=== PATIENT | female | born 1975 | race Caucasian/White ===

== ENCOUNTER 2021-08-25 07:53 | Outpatient (REF) | payer OTHER, SELFPAY ==
[2021-08-25 08:54] LABS: Alanine Aminotransferase 20 U/L (0-31); Alkaline Phosphatase 88 U/L (39-117); Anion Gap 8 (12-20); Aspartate Amino Transferase 17 U/L (5-31); Bilirubin Total 0.4 mg/dL (0.0-1.0); Blood Urea Nitrogen 9 mg/dL (9-16); Calcium 9.1 mg/dL (8.4-10.2); Carbon Dioxide 25 mmol/L (22-29); Chloride 109 mmol/L (96-108); Cholesterol 170 mg/dL; Estimated Glomerular Filt Rate > 60; Glucose Fasting 116 mg/dL (60-99); HDL Cholesterol 41 mg/dL; LDL Cholesterol Calculated 100 mg/dl; Potassium 4.3 mmol/L (3.3-5.1); Sodium 138 mmol/L (135-145); Total Protein 7.6 g/dL (6.5-8.0); Triglycerides 147 mg/dL
[2021-08-25 09:48] LABS: Creatinine Urine 94.44 mg/dL; Microalbum/Creatinine Ratio Ur 14.8 ug/mg cr
[2021-08-30 14:51] LABS: Vitamin D 25-OH, D2 <4 ng/mL; Vitamin D 25-OH, D3 9 ng/mL; Vitamin D 25-OH, Total 9 ng/mL (30-100)
== END 2021-08-25 07:54 | disposition home or self-care (01) ==
LOC: HO.LAB 07:53
PROVIDERS: Visit Provider Internal Medicine
DX: E11.9 Type 2 diabetes mellitus without complications (principal); E78.5 Hyperlipidemia, unspecified; E55.9 Vitamin D deficiency, unspecified
CPT/HCPCS: 36415; 80053; 80061; 82043; 82306

== ENCOUNTER 2022-01-18 07:42 | Outpatient (REF) | payer OTHER, SELFPAY ==
[2022-01-18 09:13] LABS: Creatinine Urine 110.27 mg/dL; Microalbum/Creatinine Ratio Ur 7.2 ug/mg cr
[2022-01-18 09:30] LABS: Alanine Aminotransferase 16 U/L (0-31); Albumin Level 3.8 g/dL (3.5-5.0); Alkaline Phosphatase 83 U/L (39-117); Anion Gap 8 (12-20); Aspartate Amino Transferase 15 U/L (5-31); Bilirubin Total 0.3 mg/dL (0.0-1.0); Blood Urea Nitrogen 11 mg/dL (9-16); Calcium 9.5 mg/dL (8.4-10.2); Carbon Dioxide 27 mmol/L (22-29); Chloride 108 mmol/L (96-108); Cholesterol 173 mg/dL; Estimated Glomerular Filt Rate > 60; Glucose Fasting 95 mg/dL (60-99); HDL Cholesterol 33 mg/dL; LDL Cholesterol Calculated 81 mg/dl; Potassium 4.9 mmol/L (3.3-5.1); Sodium 138 mmol/L (135-145); Total Protein 7.5 g/dL (6.5-8.0); Triglycerides 296 mg/dL
[2022-01-22 13:36] LABS: Vitamin D 25-OH, D2 14 ng/mL; Vitamin D 25-OH, D3 9 ng/mL; Vitamin D 25-OH, Total 23 ng/mL (30-100)
== END 2022-01-18 07:43 | disposition home or self-care (01) ==
LOC: HO.LAB 07:42
PROVIDERS: PCP Internal Medicine; Visit Provider Internal Medicine
DX: E11.9 Type 2 diabetes mellitus without complications (principal); E55.9 Vitamin D deficiency, unspecified; E78.5 Hyperlipidemia, unspecified
CPT/HCPCS: 36415; 80053; 80061; 82043; 82306

== ENCOUNTER 2022-05-27 07:39 | Outpatient (REF) | payer OTHER, SELFPAY ==
[2022-06-01 15:32] LABS: TS Negative Control Passed; TS Panel A 0; TS Panel B 0; TS Positive Control Passed; TSpotTB Negative (Negative)
== END 2022-05-27 07:40 | disposition home or self-care (01) ==
LOC: HO.LAB 07:39
PROVIDERS: PCP Internal Medicine; Visit Provider Internal Medicine
DX: Z11.1 Encounter for screening for respiratory tuberculosis (principal)
CPT/HCPCS: 36415; 86481

== ENCOUNTER 2022-09-05 11:23 | Emergency (ER) | payer OTHER, SELFPAY ==
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
[2022-09-05 11:38] VITALS: BP 130/45; PULSE 82; RESP 18; TEMP 36.7; O2SAT 100; BMI 28.5
== END 2022-09-05 13:15 | disposition home or self-care (01) ==
PROVIDERS: Emergency Provider Emergency Medicine; PCP Internal Medicine
DX: Z04.1 Encounter for examination and observation following transport accident (principal); M25.512 Pain in left shoulder
CPT/HCPCS: 73030; 99282; 99283

== ENCOUNTER 2023-01-02 07:45 | Outpatient (REF) | payer OTHER, SELFPAY ==
--- NOTE | ~2023-01-02 | XR_ITS ---
EXAMINATION: XR CLAVICLE, LEFT CLINICAL INFORMATION: Shoulder COMPARISON: 09/13/2022 TECHNIQUE: 2 of the left clavicle. FINDINGS: The clavicle is intact. The bones and soft tissues are normal. No fracture. Acromioclavicular joint alignment is anatomic. XR/XR clavicle LT IMPRESSION: Normal left clavicle.
== END 2023-01-02 07:46 | disposition home or self-care (01) ==
LOC: HO.XRAY 07:45
PROVIDERS: PCP Internal Medicine; Visit Provider Internal Medicine
DX: M89.8X1 Other specified disorders of bone, shoulder (principal)
CPT/HCPCS: 73000

== ENCOUNTER 2023-02-01 22:58 | Emergency (ER) | payer OTHER, SELFPAY ==
--- NOTE | ~2023-02-01 | XR_ITS ---
EXAMINATION: XR CHEST CLINICAL INFORMATION: Cough and shortness of breath COMPARISON: None available. TECHNIQUE: 2 views of the chest were obtained. FINDINGS: No significant abnormality is noted involving the heart, lungs, mediastinum, bony thorax or soft tissues. XR/XR chest 2V IMPRESSION: Unremarkable examination.
[2023-02-01 23:04] VITALS: BP 146/38; PULSE 82; RESP 20; TEMP 36.4; O2SAT 99; BMI 29.3
[2023-02-01 23:43] LABS: COVID-19 Test Negative (Negative); IDNOW Serial# 6674DD1D
[2023-02-01 23:48] LABS: IDNOW Serial# 55D5AD1C; Influenza A Negative (Negative); Influenza B2 Negative (Negative)
--- NOTE | 2023-02-02 00:52 | ED.GENADULT ---
HPI - General Adult General Chief complaint: Upper Respiratory Symptoms Stated complaint: stuffy nose, coughing Time Seen by Provider: 02/02/23 00:24 Source: patient, family (Daughter) and environment coordinator Mode of arrival: ambulatory Limitations: no limitations History of Present Illness HPI narrative: 47-year-old female came in for evaluation of cough, nasal congestion for 1 week patient is known to have environmental allergy history ran out of her [facility], patient been complaining of severe nasal congestion that make her breathe through her nose. No fever, no chills. Related Data Previous Rx's Medication Instructions Recorded blood sugar diagnostic ([employer] #50 ea 07/03/20 Test strips) rosuvastatin 5 mg tablet 5 mg PO DAILY 90 days #90 tabs 03/17/22 ergocalciferol (vitamin D2) 1,250 1,250 mcg PO QWEEK 90 days #13 caps 09/01/22 mcg (50,000 unit) capsule gabapentin 100 mg capsule 100 mg PO BEDTIME 90 days #90 caps 09/01/22 lidocaine 5 % topical patch 1 patch topical DAILY #15 ea 09/12/22 (Lidoderm) albuterol sulfate 90 mcg/actuation 1 inh inhalation QID PRN shortness 02/02/23 aerosol inhaler of breath or wheezing #8.5 grams cetirizine 5 mg-pseudoephedrine ER 1 tab PO Q12H PRN allergy symptoms 02/02/23 120 mg tablet,extended #20 tabs release,12hr (Zyrtec-D) phenylephrine HCl 1 % nasal drops 2 drp intranasal Q6-8H PRN nasal 02/02/23 (Ephrine) congestion 3 days #30 mL prednisone 20 mg tablet 20 mg PO BID #10 tabs 02/02/23 Allergies Allergy/AdvReac Type Severity Reaction Status Date / Time No Known Allergies Allergy Verified 02/01/23 23:04 [No Known Allergies*] Review of Systems Review of Systems: All other systems are reviewed and are negative Constitutional: Reports as per HPI and Reports no additional constitutional complaints Eyes: Reports as per HPI and Reports no additional eye complaints Reports system reviewed and no additional complaints, except as documented Cardiovascular: Reports as per HPI and Reports no additional cardiovascular complaints Respiratory: Reports as per HPI and Reports no additional respiratory complaints Gastrointestinal: Reports as per HPI and Reports no additional gastrointestinal complaints Genitourinary: Reports no additional female genitourinary complaints Musculoskeletal: Reports no additional musculoskeletal complaints Skin/Breast: Reports system reviewed and no additional complaints, except as docu Psychiatric: Reports no additional psychiatric complaints Endocrine: Reports no additional endocrine complaints Hematologic/Lymphatic: Reports no additional hematologic/lymphatic complaints Allergic/Immunologic: Reports no additional allergic/immunologic complaints Reports system reviewed and no additional complaints, except as documented and Reports Abnormal speech present [facility] Past Medical History Medical History Diabetes mellitus Hyperlipidemia LDL goal <100 Left shoulder strain Neuropathy Overweight (BMI 25.0-29.9) Surgical History History of section History of laparoscopic cholecystectomy Family History Family History Father Lung cancer Mother Stroke Hypertension Diabetes mellitus Social History Social History Housing: Apartment Alcohol intake: current Alcohol intake frequency: a few times a month Alcohol type: beer Patient Tobacco Use Status: Former Tobacco user Tobacco use type: Cigarette e-Cigarette/Vaping Use: Never Used Second Hand Smoke Exposure: No Advance Directives: No Advance Directives Information Provided: Yes service: No Current occupational status: employed Current occupational exposures/hazards: No Cognitive needs: No Hearing needs: No Vision needs: No Physical Exam ED Vital Signs: Vital Signs - 24 hr 02/01/23 23:04 Temperature 97.6 F Pulse Rate 82 Respiratory Rate 20 Blood Pressure 146/38 H Pulse Oximetry 99 Oxygen Delivery Method Room Air BMI result Body Mass Index 29.3 Vital signs have been reviewed as appeared to be correct. Blood pressure normal. Heart rate normal. Respiration rate normal. Temperature normal. Oxygen saturation normal. Appearance: Alert. Oriented X3. No acute distress. Head: Normal external exam. Normocephalic. Atraumatic. No Torres signs noted. No raccoon eyes noted Eyes: PERRLA. EOMI. Conjunctiva and sclera normal. Eyelids normal. ENT: TM's Normal. Pharynx normal. Uvula midline. Moist mucous membranes. No trismus noted. No drooling noted. No muffled voice noted. No sinus tenderness on percussion. Neck: Normal inspection. Neck supple. FROM. No adenopathy. Thyroid Normal. No meningeal signs. No neck mass noted. CVS: Normal heart rate and rhythm. Heart sound normal. No murmurs noted. Pulses normal throughout. Respiratory: No respiratory distress. Painless inspiration. Breath sounds normal. No wheezes/rales/rhonchi noted. Chest nontender. No accessory muscle usage noted or decreased air movement noted. Abdomen: Soft and nontender. Bowel sounds normal in all 4 quadrants. No distention noted. No organomegaly noted. No visible injury noted. Back: No CVA tenderness. Full range of motion noted. Skin: Skin warm and dry. Normal skin color. Normal skin turgor. No rashes/lesions/lacerations noted. Extremities: No lower extremity edema. Extremities exhibit normal range of motion. Extremities nontender. Neuro: Oriented X 3. Cranial nerve exam: II-XII are grossly intact No motor deficit. No sensory deficit. Reflexes normal. Course Course Course Narrative: Environmental allergy with nasal congestion will start the patient on Zyrtec/prednisone for 5 days/ Efrin and follow-up with PCP. Medical Decision Making Differential Diagnosis Differential Diagnoses: The differential diagnosis associated with the presentation includes (Sinusitis, environmental allergy, viral infection, pneumonia.) Lab Data MDM Lab Attestation statement: I reviewed the patient's lab results. Labs: Lab Results 02/01/23 02/01/23 Range/Units 23:22 23:22 COVID-19 (KHUSHBU) Negative (Negative) COVID-19 Clin Com See Note Influenza Type A (YOMI) Negative (Negative) Influenza Type B (YOMI) Negative (Negative) Influenza A & B Note See Note Independent Interpretation I performed an independent interpretation of an: Plain X-Ray (Chest: No acute intrathoracic pathology.) Radiology Impression Discussion of test interpretation with radiology: I have reviewed the radiologist's reading. Discharge Plan Discharge Clinical Impression: Allergy, Congested nose Patient Disposition: Home, Self-Care Instructions: General Allergic Reaction (ED) Prescriptions: New cetirizine-pseudoephedrine [Zyrtec-D] 5-120 mg tablet extended release 12 hr 1 tab PO Q12H PRN (Reason: allergy symptoms) Qty: 20 0RF prednisone 20 mg tablet 20 mg PO BID Qty: 10 0RF Ephrine 1 % drops 2 drp intranasal Q6-8H PRN (Reason: nasal congestion) 3 Days Qty: 30 0RF albuterol sulfate 90 mcg/actuation HFA aerosol inhaler 1 inh inhalation QID PRN (Reason: shortness of breath or wheezing) Qty: 8.5 0RF No Action (DME) FreeStyle Test Strip See Rx Instructions .ROUTE .MEDSUPPLY Qty: 50 11RF Rx Instructions: As directed rosuvastatin 5 mg tablet 5 mg PO DAILY 90 Days Qty: 90 1RF ergocalciferol (vitamin D2) 1,250 mcg (50,000 unit) capsule 1,250 mcg PO QWEEK 90 Days Qty: 13 1RF gabapentin 100 mg capsule 100 mg PO BEDTIME 90 Days Qty: 90 1RF lidocaine [Lidoderm] 5 % adhesive patch,medicated 1 patch topical DAILY Qty: 15 0RF Rx Instructions: leave on most painful area for up to 12 hrs Referrals: Queta Monroe MD [Primary Care Provider] -
== END 2023-02-02 02:00 | disposition home or self-care (01) ==
PROVIDERS: Emergency Provider Emergency Medicine; PCP Internal Medicine
DX: R09.81 Nasal congestion (principal); R05.9 Cough, unspecified; Z20.822 Contact with and (suspected) exposure to COVID-19; Z20.828 Contact with and (suspected) exposure to other viral communicable diseases; Z79.899 Other long term (current) drug therapy; Z87.891 Personal history of nicotine dependence
CPT/HCPCS: 71046; 87502; 87635; 99282; 99283

== ENCOUNTER 2023-03-02 07:51 | Outpatient (REF) | payer OTHER, SELFPAY ==
[2023-03-02 09:09] LABS: Alanine Aminotransferase 21 U/L (0-31); Albumin Level 3.8 g/dL (3.5-5.0); Alkaline Phosphatase 110 U/L (39-117); Anion Gap 12 (12-20); Aspartate Amino Transferase 26 U/L (5-31); Bilirubin Total 0.4 mg/dL (0.0-1.0); Blood Urea Nitrogen 9 mg/dL (9-16); Calcium 8.9 mg/dL (8.4-10.2); Carbon Dioxide 20 mmol/L (22-29); Chloride 111 mmol/L (96-108); Cholesterol 155 mg/dL; Estimated Glomerular Filt Rate > 60; Glucose Fasting 209 mg/dL (60-99); HDL Cholesterol 28 mg/dL; Potassium 4.5 mmol/L (3.3-5.1); Sodium 138 mmol/L (135-145); Total Protein 7.8 g/dL (6.5-8.0); Triglycerides 538 mg/dL
[2023-03-02 09:26] LABS: Vitamin D 25-OH Total 13.8 ng/mL (>30)
[2023-03-02 10:14] LABS: Creatinine Urine 32.53 mg/dL; Microalbumin Urine < 5.0 mg/L
== END 2023-03-02 07:52 | disposition home or self-care (01) ==
LOC: HO.LAB 07:51
PROVIDERS: PCP Internal Medicine; Visit Provider Internal Medicine
DX: E11.9 Type 2 diabetes mellitus without complications (principal); E78.5 Hyperlipidemia, unspecified; E55.9 Vitamin D deficiency, unspecified
CPT/HCPCS: 36415; 80053; 80061; 82043; 82306

== ENCOUNTER 2023-05-26 21:13 | Emergency (ER) | payer OTHER, SELFPAY ==
--- NOTE | ~2023-05-26 | XR_ITS ---
EXAMINATION: XR FINGER, RIGHT CLINICAL INFORMATION: Pain in the right index finger. COMPARISON: None available. TECHNIQUE: Three views of the right index finger. FINDINGS: No acute fracture or malalignment. There is fnvw-zl-gvzwtvny osteoarthritis in the DIP joints with nonuniform joint space narrowing and marginal osteophytes. More mild osteoarthritis in the PIP joints. MCP and CMC joints are unremarkable. There is soft tissue swelling at the index finger. No soft tissue calcifications are identified. No subcutaneous gas. XR/XR finger RT min 2V IMPRESSION: Qyeg-qj-puwimnhf osteoarthritis in the interphalangeal joints, more pronounced at the DIP joints. No acute osseous findings.
[2023-05-26 21:21] VITALS: BP 133/64; PULSE 67; RESP 18; TEMP 36.6; O2SAT 100; BMI 28.5
--- NOTE | 2023-05-26 23:21 | ED.EXTPRO ---
HPI - Extremity Problem General Chief complaint: Extremity Injury, Upper Stated complaint: R index finger pain Time Seen by Provider: 05/26/23 23:17 Source: patient Mode of arrival: ambulatory Limitations: no limitations History of Present Illness HPI Narrative: Patient comes to the emergency room complaining of right index pain. Patient states that approximately 1-2 weeks ago at work, she smashed her finger between 2 boxes. Patient complaining of ongoing pain. Patient denies any other injuries. Related Data Previous Rx's Medication Instructions Recorded blood sugar diagnostic (FreeStyle #50 ea 07/03/20 Test strips) rosuvastatin 5 mg tablet 5 mg PO DAILY 90 days #90 tabs 03/17/22 gabapentin 100 mg capsule 100 mg PO BEDTIME 90 days #90 caps 09/01/22 lidocaine 5 % topical patch 1 patch topical DAILY #15 ea 09/12/22 (Lidoderm) albuterol sulfate 90 mcg/actuation 1 inh inhalation QID PRN shortness 02/02/23 aerosol inhaler of breath or wheezing #8.5 grams phenylephrine HCl 1 % nasal drops 2 drp intranasal Q6-8H PRN nasal 02/02/23 (Ephrine) congestion 3 days #30 mL cetirizine 5 mg-pseudoephedrine ER 1 tab PO Q12H PRN allergy symptoms 03/06/23 120 mg tablet,extended #20 tabs release,12hr (Zyrtec-D) ergocalciferol (vitamin D2) 1,250 1,250 mcg PO QWEEK 90 days #13 caps 03/06/23 mcg (50,000 unit) capsule fenofibrate 54 mg tablet 54 mg PO DAILY 90 days #90 tabs 03/06/23 metformin 500 mg tablet 500 mg PO DAILY 90 days #90 tabs 03/06/23 Allergies Allergy/AdvReac Type Severity Reaction Status Date / Time No Known Allergies Allergy Verified 05/26/23 21:21 [No Known Allergies*] Review of Systems Review of Systems: Constitutional : No Weight loss, No Fever, No Chills, No Night Sweats, No Fatigue, No Malaise ENT/Mouth : No Hearing loss, No Ear Pain, No Nasal Congestion, No Sinus Pain, No Hoarseness, No sore throat, No Rhinorrhea, No Swallowing Difficulty Eyes: No Eye Pain, No Swelling, No Redness, No Foreign Body, No Discharge, No Vision Changes Cardiovascular : No Chest Pain, No SOB, No Dyspnea on Exertion, No Orthopnea, No Edema, No Palpitations Respiratory : No Cough, No Sputum, No Wheezing, No Smoke Exposure, No Dyspnea Gastrointestinal : No Nausea, No Vomiting, No Diarrhea, No Constipation, No abdominal Pain, No Hematochezia, No Melena Genitourinary : no irregular bleeding, No Dysuria, No Urinary Frequency, No Hematuria, No Urinary Incontinence, No Urgency, No Flank Pain, No Urinary Flow Changes, No Hesitancy Musculoskeletal : No joint pain, No Myalgias, No Joint Swelling Skin : No Skin Lesions, No rash Neuro : No Weakness, No Numbness, No Paresthesias, No Loss of Consciousness, No Dizziness, No Headache Psych : No Anxiety/Panic, No Depression, No SI/HI/AH/VH, No Social Issues, Heme/Lymph: No Bruising, No Bleeding,No Lymphadenopathy Endocrine : No Polyuria, No Polydipsia, No Temperature Intolerance [facility] Past Medical History Medical History Diabetes mellitus Hyperlipidemia LDL goal <100 Left shoulder strain Neuropathy Overweight (BMI 25.0-29.9) Surgical History History of section History of laparoscopic cholecystectomy Family History Family History Father Lung cancer Mother Stroke Hypertension Diabetes mellitus Social History Social History Housing: Apartment Alcohol intake: current Alcohol intake frequency: a few times a month Alcohol type: beer Patient Tobacco Use Status: Former Tobacco user Tobacco use type: Cigarette e-Cigarette/Vaping Use: Never Used Second Hand Smoke Exposure: No Advance Directives: No Advance Directives Information Provided: Yes service: No Current occupational status: employed Current occupational exposures/hazards: No Cognitive needs: No Hearing needs: No Vision needs: No Physical Exam Vital Signs: Vital Signs: Last Vital Signs Temp 97.8 F 05/26/23 21:21 Pulse 67 05/26/23 21:21 Resp 18 05/26/23 21:21 BP 133/64 05/26/23 21:21 Pulse Ox 100 05/26/23 21:21 O2 Del Method Room Air 05/26/23 21:21 BMI result Body Mass Index 28.5 Const: Other: Appearance: Alert. Oriented X3. No acute distress. Eyes: Pupils equal, round and reactive to light. ENT: Pharynx normal. Neck: Normal inspection. Neck supple. No lymph nodes noted. No crepitus CVS: Normal heart rate and rhythm. Pulses normal. Normal S1 and S2 Respiratory: No respiratory distress. Breath sounds normal. No Wheezing. No rales Abdomen: Soft and nontender. No rigidity. No distention. Skin: Skin warm and dry. Normal skin color. Normal skin turgor. Extremities: No lower extremity edema. No Lacerations. No Rash patient able to flex and extend the finger, hurts doing so but has normal range of motion Neuro: Oriented X 3. No motor deficit. No sensory deficit. Moving all extremities. No slurred speech. CN 2 through 12 grossly intact Psych: calm, cooperative, normal affect Medical Decision Making Medical Decision Making MDM Narrative: -my interpretation of x-ray of the finger, no dislocation, no fracture, patient likely has a contusion, worsened by osteoarthritis -is a work related injury, patient instructed to follow-[facility] with [facility]. [facility]. Patient states she has Tylenol and ibuprofen at home Differential Diagnosis Differential Diagnoses: The differential diagnosis associated with the presentation includes (As discussed above) Independent Interpretation I performed an independent interpretation of an: Plain X-Ray Radiology Impression Discussion of test interpretation with radiology: I have reviewed the radiologist's reading. Radiologist Impression: No acute fracture or malalignment. There is jbot-st-vdummpzj osteoarthritis in the DIP joints with nonuniform joint space narrowing and marginal osteophytes. More mild osteoarthritis in the PIP joints. MCP and CMC joints are unremarkable. There is soft tissue swelling at the index finger. No soft tissue calcifications are identified. No subcutaneous gas. XR/XR finger RT min 2V IMPRESSION: Cqdb-bg-wboqquev osteoarthritis in the interphalangeal joints, more pronounced at the DIP joints. No acute osseous findings. ? Discharge Plan Discharge Clinical Impression: Contusion of finger Patient Disposition: Home, Self-Care Instructions: Osteoarthritis (ED) Additional Instructions: Please follow-up with your primary care physician tomorrow. If you have any worsening or new symptoms, please return to the emergency room or call 911 Prescriptions: No Action (DME) FreeStyle Test Strip See Rx Instructions .ROUTE .MEDSUPPLY Qty: 50 11RF Rx Instructions: As directed rosuvastatin 5 mg tablet 5 mg PO DAILY 90 Days Qty: 90 1RF Ephrine 1 % drops 2 drp intranasal Q6-8H PRN (Reason: nasal congestion) 3 Days Qty: 30 0RF albuterol sulfate 90 mcg/actuation HFA aerosol inhaler 1 inh inhalation QID PRN (Reason: shortness of breath or wheezing) Qty: 8.5 0RF gabapentin 100 mg capsule 100 mg PO BEDTIME 90 Days Qty: 90 1RF cetirizine-pseudoephedrine [Zyrtec-D] 5-120 mg tablet extended release 12 hr 1 tab PO Q12H PRN (Reason: allergy symptoms) Qty: 20 0RF ergocalciferol (vitamin D2) 1,250 mcg (50,000 unit) capsule 1,250 mcg PO QWEEK 90 Days Qty: 13 1RF fenofibrate 54 mg tablet 54 mg PO DAILY 90 Days Qty: 90 1RF metformin 500 mg tablet 500 mg PO DAILY 90 Days Qty: 90 1RF lidocaine [Lidoderm] 5 % adhesive patch,medicated 1 patch topical DAILY Qty: 15 0RF Rx Instructions: leave on most painful area for up to 12 hrs Referrals: Patel Miller MD [Physician] - 05/30/23
== END 2023-05-27 00:12 | disposition home or self-care (01) ==
PROVIDERS: Emergency Provider Emergency Medicine; PCP Internal Medicine
DX: S60.021A Contusion of right index finger without damage to nail, initial encounter (principal); X58.XXXA Exposure to other specified factors, initial encounter; Y93.9 Activity, unspecified; Y92.9 Unspecified place or not applicable; Y99.0 Civilian activity done for income or pay; Z79.899 Other long term (current) drug therapy; Z87.891 Personal history of nicotine dependence
CPT/HCPCS: 73140; 99282; 99283

== ENCOUNTER 2023-06-02 09:34 | Outpatient (REF) | payer OTHER, SELFPAY ==
[2023-06-02 11:28] LABS: Alanine Aminotransferase 19 U/L (0-31); Alkaline Phosphatase 70 U/L (39-117); Anion Gap 9 (12-20); Aspartate Amino Transferase 18 U/L (5-31); Bilirubin Total 0.4 mg/dL (0.0-1.0); Blood Urea Nitrogen 11 mg/dL (9-16); Calcium 8.7 mg/dL (8.4-10.2); Carbon Dioxide 23 mmol/L (22-29); Chloride 111 mmol/L (96-108); Cholesterol 101 mg/dL (<200); Estimated Glomerular Filt Rate > 60; Glucose Fasting 85 mg/dL (60-99); HDL Cholesterol 37 mg/dL (>40); LDL Cholesterol Calculated 54 mg/dL (<100); Potassium 3.8 mmol/L (3.3-5.1); Sodium 139 mmol/L (135-145); Total Protein 7.3 g/dL (6.5-8.0); Triglycerides 54 mg/dL (<150)
[2023-06-02 11:44] LABS: Vitamin D 25-OH Total 24.4 ng/mL (>30)
[2023-06-02 12:32] LABS: Microalbum/Creatinine Ratio Ur 13.1 ug/mg cr (<30)
== END 2023-06-02 09:35 | disposition home or self-care (01) ==
LOC: HO.LAB 09:34
PROVIDERS: PCP Internal Medicine; Visit Provider Internal Medicine
DX: E78.5 Hyperlipidemia, unspecified (principal); E55.9 Vitamin D deficiency, unspecified; E11.9 Type 2 diabetes mellitus without complications
CPT/HCPCS: 36415; 80053; 80061; 82043; 82306; 82570

== ENCOUNTER 2023-06-27 07:21 | Outpatient (AMB) | payer OTHER, SELFPAY ==
[2023-06-27 07:25] VITALS: BP 106/62; PULSE 74; O2SAT 97; BMI 28.3
--- NOTE | 2023-06-27 07:25 | A.OFFPC_ITS ---
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 Patient Dr. De Guzman presents today for follow-up. LDL below goal at 54. Hemoglobin A1c today 5.6%. Labs reviewed with patient in office. Review of the notes patient was seen in the emergency room the beginning of May for contusion of right index finger patient reports she was trying to open box in her finger got jammed. Patient continues to report ongoing pain and swelling with limited ROM. Patient reports taking dkxc-rka-txuinqg ibuprofen minimal relief and doing ice baths. Xray showed no acute findings. XR/XR finger RT min 2V IMPRESSION: Xykt-az-urshsnrz osteoarthritis in the interphalangeal joints, more pronounced at the DIP joints. No acute osseous findings. [facility] Medical History (Updated 06/27/23 @ 07:48 by CHICO Carias) Contusion of finger Left shoulder strain Hyperlipidemia LDL goal <100 Overweight (BMI 25.0-29.9) Neuropathy Diabetes mellitus Surgical History History of section History of laparoscopic cholecystectomy Family History Father Lung cancer Mother Stroke Hypertension Diabetes mellitus Social History Housing: Apartment Alcohol intake: current Alcohol intake frequency: a few times a month Alcohol type: beer Patient Tobacco Use Status: Former Tobacco user Tobacco use type: Cigarette e-Cigarette/Vaping Use: Never Used Second Hand Smoke Exposure: No service: No Current occupational status: employed Current occupational exposures/hazards: No Cognitive needs: No Hearing needs: No Vision needs: No Questionnaire PHQ-9 Over the last 2 weeks, how often have you been bothered by any of the following problems? 1. Little interest or pleasure in doing things: not at all 2. Feeling down, depressed, or hopeless: not at all 3. Trouble falling or staying asleep, or sleeping too much: not at all 4. Feeling tired or having little energy: not at all 5. Poor appetite or overeating: not at all 6. Feeling bad about yourself - or that you are a failure or have let yourself or your family down: not at all 7. Trouble concentrating on things, such as reading the newspaper or watching television: not at all 8. Moving or speaking so slowly that other people could have noticed. Or the opposite - being so fidgety or restless that you have been moving around a lot more than usual: not at all 9. Thoughts that you would be better off or of hurting yourself in some way: not at all Total score: 0 Depression Screening Interpretation: Negative 64709 - PHQ-9 Billing: Yes Source: Developed by Drs. Luis Wilkes, Nitin Waldrop and colleagues, with an educational angel from [employer]. Thrive Questionnaire Date Thrive assessed: 10/25/22 AUDIT C Alcohol Use Questionnaire (AUDIT-C) 1. How often do you have a drink containing alcohol?: Monthly or less 2. How many drinks containing alcohol do you have on a typical day when you are drinking?: 1 or 2 3. How often do you have six or more drinks on one occasion?: Never Total Score: 1 TORRES-7 AMB Questionnaire TORRES-7 Date TORRES - 7 assessed: 10/25/22 Source: Developed by Drs. Luis Wilkes, Nitin Waldrop and colleagues, with an educational angel from [employer]. Review of Systems Const Denies chills, Denies fatigue, Denies fever(s) and Denies poor appetite Eyes Denies no additional complaints ENT Reports Normal hearing present Card Denies chest pain, Denies syncope, Denies rapid heart rate and Denies dyspnea Resp Denies cough and Denies dyspnea GI Denies change in stool character, Denies constipation, Denies diarrhea, Denies nausea and Denies vomiting Denies urinary frequency, Denies dysuria and Denies urinary urgency Musc Reports other (right index finger pain ) Neuro Reports Normal hearing present, Denies confusion and Denies syncope Psych Denies confusion Endo Denies fatigue Physical exam (Primary Care) Vital Signs: Last Vital Signs Pulse 74 06/27/23 07:25 BP 106/62 06/27/23 07:25 Pulse Ox 97 06/27/23 07:25 Oxygen Delivery Method Room Air 06/27/23 07:25 BMI result Body Mass Index 28.3 Tobacco/Smoking Status: Tobacco use Status Tobacco use date assessed 10/25/22 06/27/23 07:26 Patient Tobacco Use Status Former Tobacco user 06/27/23 07:26 Tobacco use type Cigarette 06/27/23 07:26 e-Cigarette/Vaping Use Never Used 06/27/23 07:26 PHQ-9: PHQ-9 Score PHQ-9: Total score 0 06/27/23 07:41 Depression Screening Interpretation: Negative Thrive Assessment: Date of Thrive Assessment Date Thrive assessed 10/25/22 06/27/23 07:26 Const General: No confusion Orientation/consciousness: No confusion HENMT Head: Yes normocephalic and Yes atraumatic Eyes Conjunctivae: conjunctivae normal Chest Chest palpation & inspection: normal inspection of the chest Resp Effort & Inspection: normal respiratory effort Auscultation: clear to auscultation bilaterally, no crackles, no rhonchi and no wheezes Cardio Rate: regular rate Rhythm: regular rhythm Heart sounds: S1 normal heart sound present and S2 normal heart sound present GI Inspection: Yes normal to inspection Neuro General: No confusion Cranial nerves: Yes Normal hearing present Extrem General: No edema Right upper extremity: Extremity exam: right hand Details: abnormal to inspection Details: joint swelling (right index finger PIP joint ), normal capillary refill, tenderness Location: of the 2nd digit and abnormal ROM of finger Details: pain with active ROM, pain with passive ROM and unable to flex Left upper extremity: normal to inspection and full ROM Results AMB Hemoglobin A1c AMB Hemoglobin A1c 5.6 % Last Edit by Maddy Amaya CMA on 06/27/23 07 :42 Results Reviewed Results Reviewed: Laboratory Last Values Hgb A1c (Clinic) 5.6 % (4.0-6.0) 06/27/23 07:26 Assessment and Plan Assessment & Plan (1) Hyperlipidemia LDL goal <70: Code(s): E78.5 - Hyperlipidemia, unspecified Plan: Continue on rosuvastatin 5 mg daily. Avoid fried foods, chicken skin, eggs, butter,margarine, pastries and?? red meat. LDL: 54 (2) Diabetes mellitus: Code(s): E11.9 - Type 2 diabetes mellitus without complications Qualifiers: Diabetes mellitus complication status: without complication Diabetes mellitus save all operator insulin use: without save all operator use Diabetes mellitus type: type 2 Qualified Code(s): E11.9 - Type 2 diabetes mellitus without complications Plan: Hemoglobin A1c: 5.6% Continue on metformin 500 mg daily. Patient educated to decrease the amount of carbohydrate intake such as pasta, bread, rice and potatoes are all sugar in addition to the sweet stuff. Remember that fruits are good but they also have sugar. (3) Mild persistent asthma: Code(s): J45.30 - Mild persistent asthma, uncomplicated Plan: Patient reports she does have diffuse rescue inhaler prior to exercising, requesting a refill on her albuterol. Rx sent. (4) Contusion of finger: Code(s): S60.00XA - Contusion of unspecified finger without damage to nail, initial encounter Plan: Patient advised to take ibuprofen as needed with food for pain and inflammation, will refer to orthopedic hand specialist given patient continues experiencing a growing right index and pain and decreased range of motion x-ray showed oste oarthritis and referral placed to occupational therapy. Can continue to apply ice to area for pain and inflammation or do ice baths as recommended by emergency room. Plan Keep scheduled physical exam with Dr. De Guzman in August. Orders: Orders AMB Hemoglobin A1c Today Z13.9 - Encounter for screening, unspecified OT Evaluation and Treatment Today S60.00XA - Contusion of unspecified finger without damage to nail, initial encounter Referrals Orthopedics Referral S60.00XA - Contusion of unspecified finger without damage to nail, initial encounter Medications: New ibuprofen 600 mg PO Q8H PRN 20 tabs 0RF pain S60.00XA - Contusion of unspecified finger without damage to nail, initial encounter Refilled albuterol sulfate 90 mcg/actuation 1 inh inhalation QID PRN 8.5 grams 0RF shortness of breath or wheezing Coding Level of Care Code Est Pt Level 4 (24774) Diagnoses Hyperlipidemia LDL goal <70 E78.5 Type 2 diabetes mellitus without complication, without long-term current use of insulin E11.9 Diabetes mellitus complication status: without complication Diabetes mellitus penitentiary insulin use: without save all operator use Diabetes mellitus type: type 2 Mild persistent asthma J45.30 Contusion of finger S60.00XA
== END 2023-06-27 07:49 | disposition home or self-care (01) ==
PROVIDERS: PCP Internal Medicine; Visit Provider Nurse Practitioner Family
DX: E78.5 Hyperlipidemia, unspecified (principal); E11.9 Type 2 diabetes mellitus without complications; J45.30 Mild persistent asthma, uncomplicated; S60.00XA Contusion of unspecified finger without damage to nail, initial encounter; Z13.9 Encounter for screening, unspecified
CPT/HCPCS: 83036; 99214

== ENCOUNTER 2023-08-08 08:37 | Outpatient (REF) | payer OTHER, SELFPAY ==
--- NOTE | ~2023-08-08 | XR_ITS ---
EXAMINATION: XR HAND, RIGHT CLINICAL INFORMATION: Attention index finger, second digit midportion. Pain COMPARISON: 05/26/2023 radiographs right finger, second. TECHNIQUE: Three views of the right hand. FINDINGS: Radiopaque marker placed by the technologist indicated the area of concern as indicated by the patient at the proximal aspect of the second middle phalanx. Mild to moderate osteoarthritis in the DIP joints with nonuniform joint space narrowing and marginal osteophytes. Mild osteoarthritis in the PIP joints. Mild degenerative changes in the first carpometacarpal joint with joint space narrowing and hypertrophic change. Soft tissue swelling at the second digit. Small rounded corticated ossicle redemonstrated adjacent to the ulnar styloid, possibly related to old trauma. XR/XR hand RT min 3V IMPRESSION: 1. Yjsp-ac-ltawmnnz osteoarthritis as detailed above. 2. No acute displaced fracture in the second digit.
== END 2023-08-08 08:38 | disposition home or self-care (01) ==
LOC: HO.HOSX 08:37
PROVIDERS: Visit Provider Orthopaedic Surgery
DX: M19.041 Primary osteoarthritis, right hand (principal); M25.641 Stiffness of right hand, not elsewhere classified
CPT/HCPCS: 73130; 99202

== ENCOUNTER 2023-08-08 10:06 | Outpatient (AMB) | payer OTHER, SELFPAY ==
[2023-08-08 10:19] VITALS: BMI 28.3
--- NOTE | 2023-08-08 10:19 | MHC.OFFVIS ---
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 States while opening up a box at work, she felt a discomfort in her index finger. About 2-3 weeks later she had partial numbness in her index finger. States she was seen in ED, where xrays were taken and finger were matthew taped. Currently she is limited ROM and increase of pain when bending her finger. 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 About 2 weeks later she was seen in the emergency department where radiographs were taken she was told that she had no fracture dislocation. They told her to matthew tape her finger which she thought meant that she was not supposed to bend her finger so she has not been bending her right index finger for about 2-3 months or so. She complains of stiff right index finger that hurts to bend. She denies having trouble with numbness or tingling. [facility] Medical History (Updated 08/08/23 @ 11:05 by Prema Castellanos MD) Contusion of finger Left shoulder strain Hyperlipidemia LDL goal <100 Overweight (BMI 25.0-29.9) Neuropathy Diabetes mellitus Surgical History History of section History of laparoscopic cholecystectomy Family History Father Lung cancer Mother Stroke Hypertension Diabetes mellitus Social History (Updated 08/08/23 @ 10:30 by Mariann Downey 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 / [employer] Current occupational exposures/hazards: No Cognitive needs: No Hearing needs: No Vision needs: No Physical Exam Vital Signs: BMI result Body Mass Index 28.3 Const General: cooperative, healthy appearing and no acute distress Orientation/consciousness: oriented to person and oriented to place HEENT Head: Yes normocephalic and Yes atraumatic Eyes EOM: EOMs intact bilaterally Resp Effort & Inspection: normal respiratory effort and able to speak in complete sentences Cardio Jugular venous distension: no JVD Skin General skin exam: turgor normal Rashes: no rashes Neuro General: oriented to person and oriented to place Extrem Other: Evaluation of right Upper Extremity: Neuro: Median, ulnar, radial nerves motor and sensory intact. Vascular: Cap refill brisk. ROM: When I asked for her to make a fist she was able to make a fist with her middle ring and small fingers. She continued to hold her index finger fully extended. We worked on range of motion exercises for more than 15 minutes. She was able to demonstrate active FDP tendon function. After 15 minutes of exercises I was able to get her to flex her index finger MCP joint to 90 degrees and then get her PIP joint down to about 45 degrees of flexion. We worked on this to try to build some confidence that she needs to work on these exercises to improve her motion. She can then layer hand flat on the table. PIP joint is stable on exam. Smooth and painless wrist ROM Skin: No lacerations or abrasions. General: No eccymosis. No erythema or evidence of infection. Radiographs: Three views of her right hand from 08/08/2023 were reviewed today. Attention was made to the index finger. There were no fractures or dislocations. She does have significant osteoarthritic changes generally in the hand particularly the D IP joints but also to some degree at the PIP joints. Psych Appearance: grossly normal Affect: normal affect Attitude: cooperative Office Procedures Fracture Care Details: No fracture, more than 15 minutes of manual therapy performed by me in clinic today [id number] Fracture Billing Code: Fracture Billing Code Assessment & Plan Assessment & Plan (1) Stiffness of finger joint of right hand: Code(s): M25.641 - Stiffness of right hand, not elsewhere classified (2) Osteoarthritis of right hand: Code(s): M19.041 - Primary osteoarthritis, right hand Plan Assessment and plan: 1. Right index finger stiffness, particularly at the PIP joint Status post an injury while at work in March or April 2023 Radiographs negative for fracture dislocation. Positive for generalized osteoarthritic changes in multiple digits. Worked on range of motion exercises for more than 15 minutes today while in clinic We were able to improve her range of motion from 0 degrees of flexion to about 45 degrees of flexion at the PIP joint, 90 degrees of flexion at the MCP joint. I encouraged her to do these exercises at least 20 times a day, and a making a referral to OT hand therapy She can have not appointment with our PAs in about 4 weeks to check on range of motion. Orders: Orders XR hand RT min 3V Today M79.641 - Pain in right hand Coding Level of Care Code New Pt Level 3 (13737) Diagnoses Stiffness of finger joint of right hand M25.641 Osteoarthritis of right hand M19.041 CPT Codes Fracture Care - Fracture Billing Code: Fracture Billing Code ([id number])
== END 2023-08-08 11:05 | disposition home or self-care (01) ==
PROVIDERS: PCP Internal Medicine; Visit Provider Orthopaedic Surgery
DX: M25.641 Stiffness of right hand, not elsewhere classified (principal); M19.041 Primary osteoarthritis, right hand; Y99.0 Civilian activity done for income or pay; Z04.2 Encounter for examination and observation following work accident
CPT/HCPCS: 99203

== ENCOUNTER 2023-09-13 08:37 | Outpatient (AMB) | payer SELFPAY ==
[2023-09-13 08:41] VITALS: BP 128/70; BMI 27.8
--- NOTE | 2023-09-13 08:41 | A.OFFPC_ITS ---
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 Required: No Accompanied by: Spouse Allergies No Known Allergies [No Known Allergies*] Allergy (Verified 09/13/23 08:54) Medication List - Last Reconciled 09/13/23 by Queta Saldana MD albuterol sulfate 90 mcg/actuation 1 inh inhalation QID PRN blood sugar diagnostic (FreeStyle Test strips) As directed cetirizine-pseudoephedrine 5-120 mg ER (Zyrtec-D) 1 tab PO Q12H PRN ergocalciferol (vitamin D2) 1,250 mcg PO QWEEK 90 days fenofibrate 54 mg PO DAILY 90 days gabapentin 100 mg PO BEDTIME 90 days ibuprofen 600 mg PO Q8H PRN lidocaine 5% (Lidoderm) 1 patch topical DAILY metformin 500 mg PO DAILY 90 days phenylephrine HCl 1% (Ephrine) 2 drps intranasal Q6-8H PRN 3 days rosuvastatin 5 mg PO DAILY 90 days Tobacco use date assessed: 10/25/22 Dental Screening Dental Screen Date: 09/13/23 Did you have a dental visit in the last 12 months?: No Did you have a dental problem in the last 6 months where you did not have access to dental care?: No Was dental information given to patient?: Patient has dentist HPI HPI Comments History of Present Illness Details This is a 47-year-old female with diabetes mellitus type 2 that comes accompanied by for her physical exam. Last A1c was within goal. Has never had a mammogram. Last Pap smear was 2017 and will be referred to OBGYN for this matter. Has not had a colonoscopy and does prefer Cologuard. No chest pain or shortness of breath. [facility] Medical History (Updated 09/13/23 @ 09:00 by Queta Saldana MD) Contusion of finger Left shoulder strain Hyperlipidemia LDL goal <100 Overweight (BMI 25.0-29.9) Neuropathy Diabetes mellitus Surgical History History of section History of laparoscopic cholecystectomy Family History Father Lung cancer Mother Stroke Hypertension Diabetes mellitus Social History Housing: Apartment Alcohol intake: current Alcohol intake frequency: a few times a month Alcohol type: beer Patient Tobacco Use Status: Former Tobacco user Tobacco use type: Cigarette e-Cigarette/Vaping Use: Never Used Second Hand Smoke Exposure: No service: No Current occupational status: employed 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 Luis Wilkes, Yeimy Willingham, Nitin Robertson and colleagues, with an educational angel from [employer]. Review of Systems Const All systems reviewed & are unremarkable except as noted in HPI and below Eyes Reports no additional complaints, Denies change in vision and Denies other visual disturbances Card Denies chest pain at rest, Denies chest pain with activity, Denies edema, Denies irregular heart rhythm, Denies claudication, Denies dyspnea, Denies dyspnea on exertion, Denies orthopnea, Denies paroxysmal nocturnal dyspnea and Denies slow heart rate Resp Denies cough, Denies dyspnea and Denies dyspnea on exertion GI Denies abdominal pain, Denies change in bowel habits, Denies excessive flatus, Denies nausea and Denies vomiting Denies urinary incontinence, Denies urinary hesitancy and Denies urinary urgency Musc Denies abnormal gait, Denies atrophy, Denies deformity and Denies limited range of motion Skin/Breast Denies bleeding lesions, Denies changing lesions and Denies rash Neuro Denies abnormal gait, Denies behavioral changes, Denies confusion and Denies lack of coordination Psych Denies behavioral changes and Denies confusion Physical exam (Primary Care) Vital Signs: Last Vital Signs BP 128/70 09/13/23 08:41 BMI result Body Mass Index 27.8 Tobacco/Smoking Status: Tobacco use Status Tobacco use date assessed 10/25/22 09/13/23 08:43 Patient Tobacco Use Status Former Tobacco user 09/13/23 08:43 Tobacco use type Cigarette 09/13/23 08:43 e-Cigarette/Vaping Use Never Used 09/13/23 08:43 Thrive Assessment: Date of Thrive Assessment Date Thrive assessed 10/25/22 09/13/23 08:43 Const General: No confusion Orientation/consciousness: patient oriented x3 and No confusion HENMT Head: Yes normal to inspection, Yes normocephalic and Yes atraumatic Ears: external ears normal Eyes General: appearance normal, both eyes and all related structures Eyelids: Yes eyelids normal Conjunctivae: conjunctivae normal Neck Neck: Yes normal visual inspection and Yes supple Resp Effort & Inspection: normal respiratory effort Auscultation: clear to auscultation bilaterally Cardio Jugular venous distension: no JVD Rate: regular rate Rhythm: regular rhythm Heart sounds: S1 normal heart sound present and S2 normal heart sound present GI Inspection: Yes normal to inspection Palpation (GI): Soft to palpation and nontender Auscultation: normal bowel sounds Skin General skin exam: no rashes or lesions noted Neuro General: patient oriented x3, no focal motor deficits and No confusion Extrem General: Yes full ROM Psych Appearance: grossly normal Office Procedures Flu Questionnaire Does the patient have a severe egg allergy?: No Does the patient have severe life threatening allergies?: No Does the patient have a fever or illness today?: No Has the patient ever had Guillain-Firestone Syndrome?: No Has the patient ever had any past reaction to a flu shot?: No Immunizations flu vacc [id number] 6mos up(PF) 60 mcg(15 mcgx4)/0.5 mL IM syringe Performing Provider: Queta Saldana MD Performing Location: [facility] Administered by: SHENA Ring on 09/13/23 09:10 Dose Route Admin Location Dispensed Lot Number Expiration Date NDC Helper Coordinator 0.5 mL IM Left Deltoid 0.5 mL [id number] 03/24/24 [id number] [employer] VIS Given Date VIS Provided VIS Publication Date 09/13/23 Single Vaccine 21 Eligibility Eligibility Date Funding Source Not [facility] Eligible 09/13/23 Private Assessment and Plan Assessment & Plan (1) Encounter for physical examination: Code(s): Z00.00 - Encounter for general adult medical examination without abnormal findings Plan: Repeat in a year. (2) Diabetes mellitus: Code(s): E11.9 - Type 2 diabetes mellitus without complications Qualifiers: Diabetes mellitus type: type 2 Diabetes mellitus exterminator helper termite insulin use: without exterminator helper termite use Diabetes mellitus complication status: without complication Qualified Code(s): E11.9 - Type 2 diabetes mellitus without complications Plan: Continue metformin. A1c goal is equal or less than 7%. Orders: Orders Influenza [id number] Immunization Today Z23 - Encounter for immunization MM screening mammo BI 4 Months Z12.31 - Encounter for screening mammogram for malignant neoplasm of breast Lipid Panel 4 Months E78.5 - Hyperlipidemia, unspecified Vitamin D 25-OH Total 4 Months E55.9 - Vitamin D deficiency, unspecified Comprehensive Freeborn. Panel Fast 4 Months E78.5 - Hyperlipidemia, unspecified Microalbumin, Random (w Creat) 4 Months E11.9 - Type 2 diabetes mellitus without complications Referrals Cologuard Test Z12.11 - Encounter for screening for malignant neoplasm of colon, Z12.12 - Encounter for screening for malignant neoplasm of rectum OPERATION MANAGER Referral Z12.4 - Encounter for screening for malignant neoplasm of cervix Ophthalmology Referral E11.9 - Type 2 diabetes mellitus without complications Coding Level of Care Code Est Pt Prev Care 40-64y(39414) Diagnoses Encounter for physical examination Z00.00 Type 2 diabetes mellitus without complication, without long-term current use of insulin E11.9 Diabetes mellitus type: type 2 Diabetes mellitus correction insulin use: without correction use Diabetes mellitus complication status: without complication Time Spent (min) 31
== END 2023-09-13 09:12 | disposition home or self-care (01) ==
PROVIDERS: Visit Provider Internal Medicine
DX: Z23 Encounter for immunization (principal); Z00.00 Encounter for general adult medical examination without abnormal findings; E11.9 Type 2 diabetes mellitus without complications
CPT/HCPCS: 90471; 90686; 99396